=== PATIENT | male | born 1980 ===

== ENCOUNTER 2024-11-06 08:38 | Outpatient (CLI) | payer OTHER ==
[~2024-11-06 08:38] MED LIST: DILTIAZEM ER60 MG PO; SYNTHROID88 MCG PO
== END 2024-11-06 08:48 | disposition home or self-care (01) ==
LOC: SONOGRAMA 08:38
PROVIDERS: ATTEND Internal Medicine Nephrology
DX: M79.642 Pain in left hand (principal); M79.641 Pain in right hand

== ENCOUNTER 2024-11-11 07:26 | Outpatient (CLI) | payer OTHER | END 2024-11-11 07:30 | disposition home or self-care (01) | LOC: SONOGRAMA 07:26 | DX: K76.0 Fatty (change of) liver, not elsewhere classified (principal); K74.00 Hepatic fibrosis, unspecified ==